=== PATIENT | female | born 1965 | race Caucasian/White ===

== ENCOUNTER 2020-06-06 07:28 | Day surgery (SDC) | payer OTHER ==
[~2020-06-06 07:28] MED LIST: LETROZOLE PO
== END 2020-06-06 20:40 | disposition home or self-care (01) ==
LOC: CIR.AMB 07:28
PROVIDERS: ATTEND Plastic Surgery
DX: M62.08 Separation of muscle (nontraumatic), other site (principal); Z90.13 Acquired absence of bilateral breasts and nipples